=== PATIENT | male | born 1990 | race Caucasian/White ===

== ENCOUNTER 2020-01-26 10:08 | Emergency (ER) | payer SELFPAY ==
[~2020-01-26] VITALS: Ht 180.3 cm; Wt 122.0 kg
[2020-01-26 10:28] VITALS: BP 137/78
--- NOTE | 2020-01-26 10:31 | NUR ---
THIS IS A 29 YEAR OLD MALE WHO C.O "I WOKE UP THIS MORNING WITH SOMETHING IN MY (RIGHT) EYE."
[2020-01-26] MEDS ORDERED: FLUORESCEIN OPHTHALMIC 1 MG STRIP ONE (10:32)
[2020-01-26] MEDS ORDERED: PROPARACAINE OPHTH 0.5%, 15ML ONE (10:32)
== END 2020-01-26 11:22 | disposition home or self-care (01) ==
LOC: ED 10:30
DX: H57.11 Ocular pain, right eye (principal)
CPT/HCPCS: 99283